=== PATIENT | male | born 1990 | race African-American/Black ===

== ENCOUNTER 2017-10-20 22:31 | Emergency (ER) | payer OTHER | END 2017-10-21 01:00 | disposition home or self-care (01) | LOC: FTE 10-21 01:00 | DX: S60.011A Contusion of right thumb without damage to nail, initial encounter (principal); V00.131A Fall from skateboard, initial encounter; Y92.9 Unspecified place or not applicable | CPT/HCPCS: 29130; 73130-RT; 99283-25 ==

== ENCOUNTER 2017-10-21 11:23 | Emergency (ER) | payer OTHER | END 2017-10-21 11:55 | disposition home or self-care (01) | LOC: FTE 11:23 | DX: M79.644 Pain in right finger(s) (principal) | CPT/HCPCS: 29125; 99283-25 ==